=== PATIENT | female | born 1935 | race African-American/Black ===

== ENCOUNTER 2021-06-23 16:45 | Inpatient (IN) | payer MEDICARE, BC ==
[2021-06-23] VITALS (8 sets, daily range): BP systolic 107–123; BP diastolic 50–57
[~2021-06-23] VITALS: Ht 175.3 cm; Wt 80.3 kg
[~2021-06-23 16:45] MED LIST: ASPI-1497 MT; FURO40TA5 PO; HYDR-4135 PO; METO25TA6 PO; VALS1TAB80 MT
[2021-06-23] MEDS ORDERED: ACETAMINOPHEN 325MG TABLET PO PRN (23:45)
[2021-06-23] MEDS ORDERED: KETOROLAC 15MG/ML VIAL IV PRN (23:45)
[2021-06-24] VITALS (15 sets, daily range): BP systolic 100–135; BP diastolic 47–72
[2021-06-24 06:36] LABS: BASOPHILS % 0.2 % (0.0-2.0); EOSINOPHILS % 0.1 % (0.0-5.0); HEMATOCRIT. 29.9 % (36.0-48.0); HEMOGLOBIN. 9.7 g/dL (12.0-16.0); LYMPHOCYTES % 10.8 % (20.0-50.0); MEAN CORPUSCULAR HEMOGLOBIN 30.7 pg (28.0-32.0); MEAN CORPUSCULAR VOLUME 94.5 fL (81.0-99.0); MEAN PLATELET VOLUME 9.8 fl (7.4-10.4); MONOCYTES % 3.9 % (2.0-8.0); PLATELET 172 x1000/uL (130-400); RED BLOOD CELL COUNT 3.17 mill/uL (4.2-5.4); RED CELL DISTRIBUTION WIDTH 17.1 % (11.6-14.6)
[2021-06-24] MEDS ORDERED: HYDRALAZINE HCL 50MG TABLET PO SCH (09:00)
[2021-06-24] MEDS: METOPROLOL TARTRATE 50MG TABLET PO SCH ×2 (09:00→20:19)
[2021-06-24] MEDS ORDERED: FUROSEMIDE 40MG TABLET PO SCH ×2 (09:00→17:00)
[2021-06-24] MEDS ORDERED: METOPROLOL TARTRATE 50MG TABLET PO SCH (09:00)
[2021-06-24] MEDS: HYDRALAZINE HCL 10MG TABLET PO SCH ×2 (09:00→20:18)
[2021-06-24] MEDS: ASPIRIN 81MG TABLET PO SCH (09:01)
[2021-06-24] MEDS: SODIUM POLYSTYRENE SULFONATE 15 G/60 ML BOT PO SCH ×2 (10:00→18:41)
[2021-06-24] MEDS: ENOXAPARIN 30MG/0.3ML SYR SUBCUT SCH (10:54)
[2021-06-24] MEDS ORDERED: FUROSEMIDE 40MG/4ML VIAL IVP SCH (17:00)
[2021-06-24] MEDS ORDERED: DEXT 5%/0.45% NACL 500ML 1,000 ML IV SCH (17:45)
[2021-06-24] MEDS: ATORVASTATIN CALCIUM 20MG TABLET PO SCH (20:19)
[2021-06-25] VITALS (11 sets, daily range): BP systolic 107–140; BP diastolic 52–82
[2021-06-25] MEDS ORDERED: LEVOFLOXACIN 750MG PREMIX 150 ML IV SCH (07:45)
[2021-06-25] MEDS: ASPIRIN 81MG TABLET PO SCH (08:08)
[2021-06-25] MEDS: ENOXAPARIN 30MG/0.3ML SYR SUBCUT SCH (08:09)
[2021-06-25] MEDS: METOPROLOL TARTRATE 25MG TABLET PO SCH ×2 (09:00→20:31)
[2021-06-25] MEDS: LEVOFLOXACIN 750MG PREMIX 150 ML IV SCH (10:10)
[2021-06-25 10:18] LABS: HEMATOCRIT. 31.5 % (36.0-48.0); HEMOGLOBIN. 10.3 g/dL (12.0-16.0); MEAN CORPUSCULAR HEMOGLOBIN 30.9 pg (28.0-32.0); MEAN CORPUSCULAR VOLUME 94.1 fL (81.0-99.0); MEAN PLATELET VOLUME 9.2 fl (7.4-10.4); PLATELET 175 x1000/uL (130-400); RED BLOOD CELL COUNT 3.34 mill/uL (4.2-5.4); RED CELL DISTRIBUTION WIDTH 17.7 % (11.6-14.6)
[2021-06-25] MEDS ORDERED: SODIUM POLYSTYRENE SULFONATE 15 G/60 ML BOT PO SCH (11:00)
[2021-06-25 13:21] LABS: CLARITY URINE CLOUDY (CLEAR); COLOR URINE YELLOW (YELLOW); KETONES URINE NEGATIVE (NEGATIVE); LEUKOCYTE ESTERASE URINE 2+ (NEGATIVE); NITRITE URINE NEGATIVE (NEGATIVE); OCCULT BLOOD URINE 1+ (NEGATIVE); PROTEIN URINE TRACE (NEGATIVE); SPECIFIC GRAVITY URINE 1.011 (1.005-1.030)
[2021-06-25 17:31] LABS: NUCLEATED RED BLOOD CELLS 1 /100 WBC; PLATELET ESTIMATE NORMAL
[2021-06-25] MEDS: ATORVASTATIN CALCIUM 20MG TABLET PO SCH (20:31)
[2021-06-26] VITALS: BP 114/55
[2021-06-26] MEDS: DEXT 5%/0.9% NACL 1,000 ML IV SCH ×2 (00:08→18:25)
[2021-06-26] MEDS ORDERED: POTASSIUM CHLORIDE 20MEQ/PACKET GT SCH (06:30)
[2021-06-26 06:31] LABS: HEMATOCRIT. 27.7 % (36.0-48.0); HEMOGLOBIN. 9.3 g/dL (12.0-16.0); MEAN CORPUSCULAR HEMOGLOBIN 31.1 pg (28.0-32.0); MEAN PLATELET VOLUME 9.2 fl (7.4-10.4); PLATELET 151 x1000/uL (130-400); RED BLOOD CELL COUNT 2.98 mill/uL (4.2-5.4); RED CELL DISTRIBUTION WIDTH 17.9 % (11.6-14.6)
[2021-06-26 08:00] VITALS: BP 129/45
[2021-06-26] MEDS ORDERED: POTASSIUM CHLORIDE INJ 40 MEQ in DEXT 5% WATER 250 ML IV SCH (08:00)
[2021-06-26] MEDS: ASPIRIN 81MG TABLET PO SCH (09:37)
[2021-06-26] MEDS: ENOXAPARIN 30MG/0.3ML SYR SUBCUT SCH (09:38)
[2021-06-26 12:00] VITALS: BP 128/57
[2021-06-26 16:00] VITALS: BP 125/58
[2021-06-26 20:00] VITALS: BP 150/67
[2021-06-26 20:18] LABS: PLATELET ESTIMATE NORMAL
[2021-06-26] MEDS: ATORVASTATIN CALCIUM 20MG TABLET PO SCH (21:40)
[2021-06-27] VITALS: BP 148/70
[2021-06-27 04:00] VITALS: BP 140/72
[2021-06-27 07:20] LABS: HEMATOCRIT. 26.4 % (36.0-48.0); HEMOGLOBIN. 8.9 g/dL (12.0-16.0); MEAN CORPUSCULAR HEMOGLOBIN 31.3 pg (28.0-32.0); MEAN CORPUSCULAR VOLUME 93.2 fL (81.0-99.0); MEAN PLATELET VOLUME 9.3 fl (7.4-10.4); PLATELET 147 x1000/uL (130-400); RED BLOOD CELL COUNT 2.83 mill/uL (4.2-5.4); RED CELL DISTRIBUTION WIDTH 17.6 % (11.6-14.6)
[2021-06-27 08:00] VITALS: BP 131/64
[2021-06-27] MEDS ORDERED: POTASSIUM CHLORIDE 20MEQ TABLET SR PO NR (08:15)
[2021-06-27] MEDS: ASPIRIN 81MG TABLET PO SCH (09:08)
[2021-06-27] MEDS: ENOXAPARIN 30MG/0.3ML SYR SUBCUT SCH (09:17)
[2021-06-27 10:24] LABS: PLATELET ESTIMATE NORMAL
[2021-06-27 12:00] VITALS: BP 129/65
[2021-06-27] MEDS: LEVOFLOXACIN 750MG PREMIX 150 ML IV SCH (14:11)
[2021-06-27] MEDS: DEXT 5%/0.9% NACL 1,000 ML IV SCH (14:11)
[2021-06-27] MEDS ORDERED: DEXT 5% WATER 500 ML IV ONE (15:15)
[2021-06-27 16:00] VITALS: BP 153/65
[2021-06-27 20:00] VITALS: BP 142/68
[2021-06-27] MEDS: ATORVASTATIN CALCIUM 20MG TABLET PO SCH (20:59)
[2021-06-28] VITALS: BP 135/55
[2021-06-28 04:00] VITALS: BP 138/60
[2021-06-28 07:18] LABS: HEMATOCRIT. 26.8 % (36.0-48.0); HEMOGLOBIN. 8.4 g/dL (12.0-16.0); MEAN CORPUSCULAR VOLUME 95.1 fL (81.0-99.0); MEAN PLATELET VOLUME 9.1 fl (7.4-10.4); PLATELET 145 x1000/uL (130-400); RED BLOOD CELL COUNT 2.82 mill/uL (4.2-5.4); RED CELL DISTRIBUTION WIDTH 18.1 % (11.6-14.6)
[2021-06-28 08:00] VITALS: BP 116/65
[2021-06-28] MEDS: ENOXAPARIN 30MG/0.3ML SYR SUBCUT SCH (09:01)
[2021-06-28] MEDS: ASPIRIN 81MG TABLET PO SCH (09:01)
[2021-06-28] MEDS: DEXT 5%/0.9% NACL 1,000 ML IV SCH (09:02)
[2021-06-28 12:00] VITALS: BP 138/68
[2021-06-28 16:00] VITALS: BP 146/56
[2021-06-28 20:00] VITALS: BP 150/70
[2021-06-28] MEDS: ATORVASTATIN CALCIUM 20MG TABLET PO SCH (21:44)
[2021-06-29] VITALS (7 sets, daily range): BP systolic 130–155; BP diastolic 65–80
[2021-06-29] MEDS: DEXT 5%/0.9% NACL 1,000 ML IV SCH (05:45)
[2021-06-29] MEDS: ASPIRIN 81MG TABLET PO SCH (09:32)
[2021-06-29] MEDS: ENOXAPARIN 30MG/0.3ML SYR SUBCUT SCH (09:32)
[2021-06-29 09:51] LABS: PLATELET ESTIMATE NORMAL
[2021-06-29] MEDS: LEVOFLOXACIN 750MG PREMIX 150 ML IV SCH (10:39)
[2021-06-29] MEDS ORDERED: METO25TA6 MT (15:03)
[2021-06-29] MEDS ORDERED: FURO-152 MT (15:03)
[2021-06-29] MEDS ORDERED: ATOR20TA PO (15:03)
[2021-06-29] MEDS: ATORVASTATIN CALCIUM 20MG TABLET PO SCH (21:19)
[2021-06-30 04:00] VITALS: BP 132/55
[2021-06-30] MEDS: DEXT 5%/0.9% NACL 1,000 ML IV SCH ×2 (04:00→21:45)
[2021-06-30 08:00] VITALS: BP 143/62
[2021-06-30] MEDS: ENOXAPARIN 30MG/0.3ML SYR SUBCUT SCH (08:56)
[2021-06-30] MEDS: ASPIRIN 81MG TABLET PO SCH (08:56)
[2021-06-30 12:00] VITALS: BP 168/64
[2021-06-30 16:00] VITALS: BP 132/60
[2021-06-30 20:00] VITALS: BP 146/62
[2021-06-30] MEDS: ATORVASTATIN CALCIUM 20MG TABLET PO SCH (23:16)
[2021-07-01] VITALS: BP 144/58
[2021-07-01 04:00] VITALS: BP 150/62
[2021-07-01 08:00] VITALS: BP 171/64
[2021-07-01] MEDS: ENOXAPARIN 30MG/0.3ML SYR SUBCUT SCH (09:29)
[2021-07-01] MEDS: ASPIRIN 81MG TABLET PO SCH (09:29)
[2021-07-01] MEDS: LEVOFLOXACIN 750MG PREMIX 150 ML IV SCH (09:30)
[2021-07-01 12:00] VITALS: BP 171/89
[2021-07-01 16:00] VITALS: BP 182/69
[2021-07-01] MEDS: DEXT 5%/0.9% NACL 1,000 ML IV SCH (17:41)
[2021-07-01 19:18] VITALS: BP 167/65
== END 2021-07-01 19:20 | DRG 871 ==
LOC: 5EST 16:45 → 6EST 06-26 16:46
PROVIDERS: ADMIT Specialist; ATTEND Specialist
DX: A41.9 Sepsis, unspecified organism (principal); G92 Toxic encephalopathy; G82.50 Quadriplegia, unspecified; I21.4 Non-ST elevation (NSTEMI) myocardial infarction; I50.31 Acute diastolic (congestive) heart failure; N39.0 Urinary tract infection, site not specified; E87.0 Hyperosmolality and hypernatremia; R47.01 Aphasia; L97.909 Non-pressure chronic ulcer of unspecified part of unspecified lower leg with unspecified severity; E87.1 Hypo-osmolality and hyponatremia; N17.9 Acute kidney failure, unspecified; I13.0 Hypertensive heart and chronic kidney disease with heart failure and stage 1 through stage 4 chronic kidney disease, or unspecified chronic kidney disease; E44.0 Moderate protein-calorie malnutrition; I27.21 Secondary pulmonary arterial hypertension; N18.9 Chronic kidney disease, unspecified; E87.5 Hyperkalemia; E66.9 Obesity, unspecified; E16.2 Hypoglycemia, unspecified; D64.9 Anemia, unspecified; L89.156 Pressure-induced deep tissue damage of sacral region; E78.00 Pure hypercholesterolemia, unspecified; I95.9 Hypotension, unspecified; R26.89 Other abnormalities of gait and mobility; R20.0 Anesthesia of skin; Z66 Do not resuscitate; E87.6 Hypokalemia; R13.10 Dysphagia, unspecified; R47.1 Dysarthria and anarthria; D69.6 Thrombocytopenia, unspecified; L89.159 Pressure ulcer of sacral region, unspecified stage; L89.309 Pressure ulcer of unspecified buttock, unspecified stage; R53.81 Other malaise; Z68.26 Body mass index [BMI] 26.0-26.9, adult; Z86.73 Personal history of transient ischemic attack (TIA), and cerebral infarction without residual deficits; I25.2 Old myocardial infarction; E87.8 Other disorders of electrolyte and fluid balance, not elsewhere classified
CPT/HCPCS: 36415; 70551; 71045; 80048; 81003; 82040; 82140; 82962; 83735; 83880; 84132; 84134; 84145; 84443; 85025; 87077; 87186; 92610; 97162; 97166; 97530; 97535; J1650; J1885; J1940; J1956; J3480; J7042; J7060